=== PATIENT | male | born 1965 | race Two or more races ===

== ENCOUNTER 2022-10-01 00:12 | Emergency (ER) | payer MEDICAID ==
[~2022-10-01] VITALS: Ht 172.7 cm; Wt 88.6 kg
[2022-10-01] MEDS ORDERED: TAMS-13 PO (00:24)
[2022-10-01] MEDS ORDERED: METF-1211 PO (00:25)
[2022-10-01 01:16] LABS: APPEARANCE,URINE CLEAR (CLEAR); BILIRUBIN,URINE NEGATIVE (NEGATIVE); GLUCOSE, URINE (UA) >=1000 mg/dL (NEGATIVE); KETONES,URINE NEGATIVE (NEGATIVE); LEUKOCYTE ESTERASE ,URINE MODERATE (NEGATIVE); NITRATE,URINE NEGATIVE (NEGATIVE); OCCULT BLOOD,URINE SMALL (NEGATIVE); PROTEIN,URINE NEGATIVE (NEGATIVE); SPECIFIC GRAVITIY, URINE 1.023 (1.003-1.030); UROBILINOGEN,URINE <=1.0 mg/dL (<=1.0)
[2022-10-01 01:20] VITALS: BP 135/86
[2022-10-01 01:25] LABS: RBC,URINE 0-2 /HPF (0-2)
[2022-10-01 01:26] LABS: BACTERIA,URINE Few /HPF (None Seen); SQUAMOUS EPITHELIAL CELL,UR Few /LPF (None Seen); WBC,URINE 26-50 /HPF (0-5); YEAST,URINE Moderate /HPF (None Seen)
[2022-10-01] MEDS ORDERED: CEPH-558 PO (01:56)
== END 2022-10-01 02:18 | disposition home or self-care (01) ==
LOC: EMS 00:14
DX: R33.9 Retention of urine, unspecified (principal); N39.0 Urinary tract infection, site not specified; E11.9 Type 2 diabetes mellitus without complications; Z90.49 Acquired absence of other specified parts of digestive tract
CPT/HCPCS: 81001; 87086; 87186; 99283